=== PATIENT | female | born 1965 | race African-American/Black ===

== ENCOUNTER → 2019-02-26 21:39 | Outpatient (CLI) | payer MEDICAID | END | disposition home or self-care (01) | LOC: D.MAMMO 13:45 | PROVIDERS: ATTEND Family Medicine | DX: Z12.31 Encounter for screening mammogram for malignant neoplasm of breast (principal) ==

== ENCOUNTER → 2019-03-25 17:36 | Outpatient (CLI) | payer MEDICAID | END | disposition home or self-care (01) | LOC: D.US 17:36 | DX: R92.8 Other abnormal and inconclusive findings on diagnostic imaging of breast (principal) ==

== ENCOUNTER → 2019-09-27 17:21 | Outpatient (CLI) | payer OTHER | END | disposition home or self-care (01) | LOC: D.MAMMO 09:30 | PROVIDERS: ATTEND Family Medicine | DX: R92.8 Other abnormal and inconclusive findings on diagnostic imaging of breast (principal) ==

== ENCOUNTER → 2020-03-27 19:20 | Outpatient (CLI) | payer SELFPAY | END | disposition home or self-care (01) | LOC: D.MAMMO 09:00 | PROVIDERS: ATTEND Family Medicine | DX: R92.8 Other abnormal and inconclusive findings on diagnostic imaging of breast (principal) ==

== ENCOUNTER 2021-01-17 14:05 | Inpatient (IN) | payer OTHER ==
[~2021-01-17] VITALS: Ht 160 cm; Wt 93.9 kg
[2021-02-01] MEDS ORDERED: LOTENSIN20 MG PO (15:56)
[2021-02-01] MEDS ORDERED: BENZTROPINE MESY2 MG PO (15:57)
[2021-02-01] MEDS ORDERED: DEPAKOTE500 MG PO (15:58)
[2021-02-01] MEDS ORDERED: ZYPREXA10 MG PO (15:58)
[2021-02-01] MEDS ORDERED: PRAVACHOL20 MG PO (15:59)
[2021-02-05 10:13] LABS: ANION GAP 5.7 mmol/L (8-16); CALCIUM 9.6 mg/dL (8.5-10.1); CARBON DIOXIDE 36.2 mmol/L (21.0-32.0); POTASSIUM - SERUM 3.9 mmol/L (3.5-5.1)
[2021-02-05 10:53] LABS: HEMATOCRIT 36.6 % (36.0-48.0); HEMOGLOBIN 11.9 g/dL (12-16); LYMPHOCYTE ABS# 3.14 10x3/uL (1.18-3.74); MCH 28.5 pg (26.0-34.0); MCHC 32.5 g/dL (31.0-37.0); MCV 87.6 fL (80.0-100.0); MEAN PLATELET VOLUME 10.7 fL (7.4-10.4); NEUTROPHIL ABS# 2.11 10x3/uL (1.56-6.13); PLATELET COUNT 183 10x3/uL (130-400); RBC 4.18 10x6/uL (4.00-5.40); RDW 13.1 % (11.5-14.5); WBC 5.7 10x3/uL (4.8-10.8)
[2021-02-05 10:58] VITALS: BP 105/74; BMI 36.7
[2021-02-05 11:56] LABS: ALBUMIN 3.8 g/dL (3.4-5.0); BILIRUBIN - TOTAL 0.36 mg/dL (0.2-1.3); PROTEIN - SERUM 7.8 g/dL (6.4-8.2)
[2021-02-05 12:37] LABS: ANISOCYTOSIS OCC; LYMPHOCYTES 46 % (15-50); MONOCYTES 12 % (2-11); NEUTROPHILS 41 % (40-80); PLATELET ESTIMATE NORMAL
--- NOTE | 2021-02-05 16:10 | NUR ---
PT RESPONSIVE TO VERBAL COMMANDS. HOLDING AN HOUR POST NARCAN.
[2021-02-05 16:45] VITALS: BP 113/70; BMI 36.7
--- NOTE | 2021-02-05 17:05 | NUR ---
PATIENT RESTING QUIETLY, AROUSES EASILY TO VERBAL STIMULI. RESPIRATIONS EVEN AND UNLABORED. NO DISTRESS NOTED. IV SITE DRY AND INTACT WITH NO S/S OF INFILTRATION. FLUIDS RUNNING AT ORDERED RATE AT THIS TIME. NEGRON CATH IN PLACE DRAINING CLEAR, YELLOW URINE. INCISION ACROSS LOWER ABDOMEN DRESSED WITH DRESSING DRY ADN INTACT. CALL CASTILLO IN REACH, SIDE RAILS UP X 2, BED IN LOW POSITION.
[2021-02-05 18:35] VITALS: BP 118/73
[2021-02-05 20:00] VITALS: BP 118/73
[2021-02-06] VITALS (8 sets, daily range): BP systolic 89–161; BP diastolic 46–65
[2021-02-06 05:26] LABS: BASOPHILS 0 % (0-2); EOSINOPHILS 0 % (0-7); HEMATOCRIT 32.1 % (36.0-48.0); HEMOGLOBIN 10.4 g/dL (12-16); IMMATURE GRANULOCYTES 0.2 % (0-5); LYMPHOCYTE ABS# 1.44 10x3/uL (1.18-3.74); LYMPHOCYTES 13.8 % (15-50); MCHC 32.4 g/dL (31.0-37.0); MCV 86.5 fL (80.0-100.0); MEAN PLATELET VOLUME 10.9 fL (7.4-10.4); MONOCYTES 11.7 % (2-11); NEUTROPHIL ABS# 7.78 10x3/uL (1.56-6.13); NEUTROPHILS 74.3 % (40-80); PLATELET COUNT 149 10x3/uL (130-400); RBC 3.71 10x6/uL (4.00-5.40); RDW 13.1 % (11.5-14.5)
[2021-02-06 05:32] LABS: WBC 10.5 10x3/uL (4.8-10.8)
--- NOTE | 2021-02-06 05:33 | NUR ---
I have reviewed this patient and I concur with the Shift Assessment completed by the Licensed Practical Nurse today this shift.
[2021-02-06 06:04] LABS: ALKALINE PHOSPHATASE 48 U/L (30-120); ALT (SGPT) 13 U/L (10-68); BILIRUBIN - TOTAL 0.45 mg/dL (0.2-1.3); CALC OSMOLALITY 283 mosm/kg (275-300); CALCIUM 8.7 mg/dL (8.5-10.1); CARBON DIOXIDE 28.5 mmol/L (21.0-32.0); CHLORIDE - SERUM 105 mmol/L (98-107); GLUCOSE 104 mg/dL (74-106); MAGNESIUM - SERUM 1.8 mg/dL (1.8-2.4); PHOSPHOROUS 4.4 mg/dL (2.5-4.9); PROTEIN - SERUM 6.1 g/dL (6.4-8.2); SODIUM 141 mmol/L (136-145); TROPONIN-I < 0.017 ng/mL (0.000-0.060); UREA NITROGEN 20 mg/dL (7-18)
[2021-02-06 06:08] LABS: ALBUMIN 2.8 g/dL (3.4-5.0); CREATININE - SERUM 1.3 mg/dL (0.6-1.3); POTASSIUM - SERUM 4.5 mmol/L (3.5-5.1); eGFR NON AFRICAN AMERICAN 45 mL/min (90-120)
--- NOTE | 2021-02-06 07:00 | NUR ---
RECEIVED BEDSIDE REPORT ON PATIENT AND ASSUMED CARE. PATIENT SLEEPING, EASILY AROUSED BY VOICE, ALERT AND ORIENTED X 4, DENIES ANY PAIN. IV 20 GA TO LEFT AC INFUSING NS AT 125 ML/HR. DRESSING TO LOWER ABDOMEN C/D/I, NEGRON CATH IN PLACE WITH CLEAR [place]RI[place] UOP NOTED. BBS - CLEAR AND EQUAL. NO NEEDS AT THIS TIME. HEAD TO TOE ASSESSMENT COMPLETED.
--- NOTE | 2021-02-06 08:10 | NUR ---
PATIENT ASKING FOR SOMETHING TO DRINK, REMAINS NPO PER ORDER. ORAL CARE PERFORMED. NO OTHER NEEDS AT THIS TIME.
--- NOTE | 2021-02-06 09:24 | NUR ---
SPOKE TO RAINER, NURSE WITH PATIENTS [facility], STATES IF NEEDED FOR DISCHARGE PLANNING TO GIVE HER A CALL AT [phone].
--- NOTE | 2021-02-06 15:08 | NUR ---
PATIENT RESTING QUIETLY, NO NEEDS AT THIS TIME. MEDS PER DEC.
--- NOTE | 2021-02-06 21:58 | NUR ---
NURSE RECEIVED BEDSIDE REPORT. PT WAS RESTING IN BED AT THE TIME WITH COVERS OVER HER HEAD. NURSE REVIEWED PREVIOUS VITALS AND NOTICED PT HAS BEEN RUNNING A TEMP. Zhui Xin INFORMED THIS NURSE THAT PATIENT HAD A BP OF 89/49 WITH A 99.7 TEMP. NURSE TOOK BLOOD PRESSURE MANUALLY AND RECEIVED 100/62. PT WAS READJUSTED IN BED AND BLOOD PRESSURE WAS TAKEN AGAIN. RECEIVED BLOOD PRESSURE OF 161/58. THIS NURSE THEN PAGED DR. ALVAREZ ABOUT PT'S VITAL SIGNS. NURSE WAS GIVEN ORDERS OF A CHEST XRAY, BLOOD CULTURES TO BE DONE AND AN ORDER OF TYLENOL 650MG Q4H PRN FOR FEVER. PT IS ALERT AND ORIENTED. NO COMPLAINTS OF PAIN AT THIS TIME. PT SAYS SHE JUST FEELS SOME WEAKNESS. NEGRON IS IN PLACE AND DRAINING. BED IN LOWEST POSITION AND CALL LIGHT IN REACH.
[2021-02-07] VITALS: BP 85/48
[2021-02-07 04:00] VITALS: BP 101/62
--- NOTE | 2021-02-07 07:15 | NUR ---
RESTING IN BED WITH EYES CLOSED, EASILY AROUSED TO SPEECH. IV LOCATED TO LEFT FA CURRENTLY RUNNING NS @ 125ML. NEGRON PRESENT PUTTING OUT DARK [place]ANDRI[place] URINE. DENIES CURRENT NEEDS, WILL CONT TO MONITOR.
--- NOTE | 2021-02-07 07:47 | NUR ---
MANUAL BP 112/66
[2021-02-07 08:56] VITALS: BP 97/56
[2021-02-07 12:59] VITALS: BP 109/70
[2021-02-07 15:39] LABS: BASOPHILS 0.3 % (0-2); EOSINOPHILS 0.3 % (0-7); HEMATOCRIT 35.2 % (36.0-48.0); IMMATURE GRANULOCYTES 0.8 % (0-5); LYMPHOCYTE ABS# 3.12 10x3/uL (1.18-3.74); LYMPHOCYTES 19.7 % (15-50); MCH 28.5 pg (26.0-34.0); MCHC 31.3 g/dL (31.0-37.0); MEAN PLATELET VOLUME 11.2 fL (7.4-10.4); MONOCYTES 13.4 % (2-11); NEUTROPHIL ABS# 10.35 10x3/uL (1.56-6.13); NEUTROPHILS 65.5 % (40-80); PLATELET COUNT 164 10x3/uL (130-400); RBC 3.86 10x6/uL (4.00-5.40); RDW 14.3 % (11.5-14.5)
[2021-02-07 15:42] LABS: ANION GAP 13.2 mmol/L (8-16); BILIRUBIN - TOTAL 0.69 mg/dL (0.2-1.3); CALCIUM 9.3 mg/dL (8.5-10.1); CARBON DIOXIDE 26.2 mmol/L (21.0-32.0); CREATININE - SERUM 1.3 mg/dL (0.6-1.3); POTASSIUM - SERUM 4.4 mmol/L (3.5-5.1)
[2021-02-07 16:06] LABS: MCV 91.2 fL (80.0-100.0); WBC 15.8 10x3/uL (4.8-10.8)
[2021-02-07 18:03] VITALS: BP 105/67
[2021-02-07 20:00] VITALS: BP 97/46
--- NOTE | 2021-02-07 21:43 | NUR ---
PT RESTING IN BED. EASY TO AWAKEN. NO PAIN NOR DISTRESS NOTED AT THIS TIME. NO NAUSEA OR VOMITTING AT THIS TIME. BED IN LOWEST POSITION. CALL CASTILLO LIGHT IN REACH.
[2021-02-08] VITALS: BP 91/54
[2021-02-08 04:00] VITALS: BP 96/65
--- NOTE | 2021-02-08 04:56 | NUR ---
PT HAS NOT VOIDED THROUGHOUT THE NIGHT. RECEIVED AN ORDER FROM DAY GUARD PHYSICIAN DR. SPEARS TO IN AND OUT PATIENT. OUTPUT WAS AROUND 600 CC. PT TOLERATED WELL. UA WAS SENT TO LAB WELL.
[2021-02-08 05:56] LABS: BASOPHILS 0.1 % (0-2); EOSINOPHILS 0.4 % (0-7); HEMATOCRIT 33.2 % (36.0-48.0); HEMOGLOBIN 10.6 g/dL (12-16); IMMATURE GRANULOCYTES 0.3 % (0-5); LYMPHOCYTE ABS# 2.54 10x3/uL (1.18-3.74); LYMPHOCYTES 19.5 % (15-50); MCH 28.2 pg (26.0-34.0); MCHC 31.9 g/dL (31.0-37.0); MEAN PLATELET VOLUME 10.5 fL (7.4-10.4); MONOCYTES 9.9 % (2-11); NEUTROPHIL ABS# 9.09 10x3/uL (1.56-6.13); NEUTROPHILS 69.8 % (40-80); PLATELET COUNT 178 10x3/uL (130-400); RBC 3.76 10x6/uL (4.00-5.40); RDW 13.9 % (11.5-14.5)
[2021-02-08 06:16] LABS: MCV 88.3 fL (80.0-100.0)
[2021-02-08 06:18] LABS: ALBUMIN 2.5 g/dL (3.4-5.0); ANION GAP 14.8 mmol/L (8-16); BILIRUBIN - TOTAL 0.49 mg/dL (0.2-1.3); CALCIUM 8.8 mg/dL (8.5-10.1); CARBON DIOXIDE 24.3 mmol/L (21.0-32.0); CREATININE - SERUM 0.9 mg/dL (0.6-1.3); POTASSIUM - SERUM 4.1 mmol/L (3.5-5.1); PROTEIN - SERUM 6.4 g/dL (6.4-8.2)
--- NOTE | 2021-02-08 07:30 | NUR ---
ALERT AND ORIENTED. ASSESSMENT COMPLETE. DENIES NEEDS. BED LOW. CALL CASTILLO AND PERSONAL ITEMS IN REACH. WILL CONTINUE TO MONITOR.
--- NOTE | 2021-02-08 07:42 | HP ---
PATIENT: LEVI BAKER MEDICAL RECORD: [id number] ACCOUNT: [id number] LOCATION:D.MS Carvajal2223 : 63 ADMISSION DATE: 02/05/21 PCP: ISELA OWENS HISTORY AND PHYSICAL EXAMINATION REASON FOR CONSULTATION: Medical management in a patient with bipolar illness and postoperative colon resection. HISTORY OF PRESENT ILLNESS: The patient is a 55-year-old -[place] female who had a large 4 cm villous adenoma noted on endoscopy. It was too large to be removed endoscopically. Dr. Mora admitted her for laparoscopic sigmoid resection two days ago. She is now postoperative. She has had minimal bowel function. She had no nausea or vomiting. Some of her medications have been held. She has been a little bit more tearful recently, but denies any suicidal thoughts. PAST MEDICAL HISTORY: Bipolar disorder, anxiety, hyperlipidemia, hypertension, ventral hernia, and villous adenoma of the colon. PAST SURGICAL HISTORY: Sigmoid resection for villous adenoma, cholecystectomy, tubal ligation, and ventral hernia repair. HOME MEDICATIONS: Dexamethasone 4 mg p.o. daily started in October, Bumex 2 mg p.o. daily, benazepril 10 mg daily, Pravastatin 20 mg at bedtime, Haldol Decanoate 50 mg IM every 2 weeks. Divalproex ER 500 mg tablets 1 b.i.d., trihexyphenidyl 5 mg tablets by mouth daily, Haldol 10 mg daily, and olanzapine 20 mg p.o. b.i.d. ALLERGIES: None known. FAMILY HISTORY: Parents are . SOCIAL HISTORY: She lives with small group therapy. Denies alcohol or cigarette use or illicit drugs. REVIEW OF SYSTEMS: GENERAL: Denies weight change, fever, or fatigue. RESPIRATORY: No SOB. CARDIOVASCULAR: No chest pain, claudication, edema, or heart disease. GASTROINTESTINAL: No nausea, vomiting, change in stools, blood per rectum. She has currently had minimal flatus postoperatively. Denies significant abdominal pain. GENITOURINARY: No incontinence. No vaginal bleeding. ENDOCRINE: Denies polyuria, polydipsia, heat, or cold intolerance. NEUROLOGIC: No history of stroke, TIA, vascular headaches, or seizures. PSYCHIATRIC: Admits to chronically depressed mood but currently stable on her regimen. PHYSICAL EXAMINATION: VITAL SIGNS: Show a temperature of 99.1 earlier today was 100.6 Fahrenheit, pulse 98.8, respirations 16, blood pressure 109/78 with a sat of 96% on room air. GENERAL: The patient is alert and oriented. HEENT: Eyes are clear. Oropharynx unremarkable. NECK: Supple. HISTORY AND PHYSICAL [id number] LEVI BAKER CHEST: No wheeze or rales. HEART: Regular rate and rhythm. ABDOMEN: Mildly distended with hypoactive bowel sounds. Nontender throughout. PELVIC: Deferred. EXTREMITIES: No CC&E. NEUROLOGICAL: She is oriented to person, place, and time. Cranial nerves are grossly intact. No motor or sensory deficit appreciated. Gait was not tested. PSYCHIATRIC: The patient is in mild depression, but is not currently anxious or having any suicidal thoughts or hallucinosis. LABORATORY DATA: White count of 15.8 thousand and yesterday of 10.5 thousand. H and H 11 and 35.2 respectively. Chemistry: BUN and creatinine are 16 and 1.3. CEA is 4.3. UA not ordered. Chest x-ray shows no acute cardiopulmonary disease. ASSESSMENT: 1. Two days status post laparoscopic sigmoid resection for villous adenoma. 2. Leukocytosis, etiology unknown. 3. Postoperative anemia, asymptomatic. 4. Hypertension, hyperlipidemia, bipolar disorder. PLAN: Follow CBC. At this time, it is not clinically septic. We will resume her antipsychotics as soon as surgery allows. Dr. Owens will follow in the a.m. TRANSINT:[id number] Voice Confirmation ID: [id number] DOCUMENT ID: [id number] SAMMY KELLER MD at 0742 CC: [id number] DICTATION DATE: 02/07/211800 OPERATING COST CLERK: 02/07/212136 ADM IN [facility] [address] [place] [address]
[2021-02-08 07:44] LABS: BILIRUBIN NEGATIVE (NEGATIVE); KETONE SMALL mg/dL (NEGATIVE); NITRITE NEGATIVE (NEGATIVE); SQUAMOUS EPITHELIAL 0-5 HPF (0-4); UROBILINOGEN NORMAL mg/dL (< 2); WHITE CELLS - URINE 0-5 HPF (0-4)
[2021-02-08 07:45] LABS: AMORPHOUS SEDIMENT <1+ LPF (NONE SEEN); BACTERIA FEW HPF (NONE SEEN)
--- NOTE | 2021-02-08 07:46 | NUR ---
ATTEMPTED TO OFFLOAD PATIENT TO RIGHT SIDE BUT STATES WANTS TO BE ON BACK. PATIENT'S BUTTOCKS WITHOUT REDNESS. SKIN INTACT.
--- NOTE | 2021-02-08 08:25 | NUR ---
SPOKE WITH DR OWENS WHO STATES TO PLACE NEGRON IF PATIENT DOES NOT VOID BY 1100.
[2021-02-08 08:42] VITALS: BP 100/66
--- NOTE | 2021-02-08 09:57 | NUR ---
16 GEORGIAN NG TUBE PLACED IN RIGHT NARE. KUB PERFORMED.
--- NOTE | 2021-02-08 11:00 | NUR ---
16 F NEGRON PLACED PER PIG CASTER KARLA D/T PATIENT UNABLE TO VOID. 500CC OUT.
[2021-02-08 13:27] VITALS: Ht 160 cm; Wt 93.9 kg
[2021-02-08 14:04] VITALS: BP 130/77
--- NOTE | 2021-02-08 14:26 | NUR ---
PATIENT STATES FEELS LIKE SHE NEEDS TO HAVE BM. ASSISTED TO BATHROOM. BM NOTED TO BED AND LINENS CHANGED. PATIENT ALSO HAD ANOTHER MEDIUM SOFT BM IN TOILET.
[2021-02-08 16:49] VITALS: BP 135/70
--- NOTE | 2021-02-08 20:00 | NUR ---
ALERTRESTING IN BED, NG TUBE TO R NARES WITH 400CC DARK FLUID NOTED IN CANISTER, INCONTIENT OF LARGE AMOUNT SOFT STOOL, PADS CHANGED PERICARE AND NEGRON CARE DONE, SEE SHIFT ASSESSMENT, CALL LIGHT IN REACH INSTRUCTED TO CALL IF HAS ANOTHER BM
[2021-02-08 21:36] VITALS: BP 105/58
--- NOTE | 2021-02-09 01:00 | NUR ---
INVONTIENT OF MODERATE AMOUNT SOFT STOOL, PADS CHANGED PERICARE AND NEGRON CARE DONE, DENIES NEEDS AT THIS TIME
[2021-02-09 04:00] VITALS: BP 108/61
[2021-02-09 06:32] LABS: BASOPHILS 0.3 % (0-2); EOSINOPHILS 1.7 % (0-7); HEMATOCRIT 30.4 % (36.0-48.0); HEMOGLOBIN 9.6 g/dL (12-16); IMMATURE GRANULOCYTES 0.5 % (0-5); LYMPHOCYTE ABS# 2.47 10x3/uL (1.18-3.74); LYMPHOCYTES 23.7 % (15-50); MCH 27.8 pg (26.0-34.0); MCHC 31.6 g/dL (31.0-37.0); MCV 88.1 fL (80.0-100.0); MEAN PLATELET VOLUME 10.3 fL (7.4-10.4); NEUTROPHIL ABS# 6.67 10x3/uL (1.56-6.13); NEUTROPHILS 63.8 % (40-80); RBC 3.45 10x6/uL (4.00-5.40); RDW 14.2 % (11.5-14.5); WBC 10.4 10x3/uL (4.8-10.8)
[2021-02-09 06:47] LABS: PLATELET COUNT 237 10x3/uL (130-400)
[2021-02-09 07:03] LABS: ALBUMIN 2.4 g/dL (3.4-5.0); ALKALINE PHOSPHATASE 53 U/L (30-120); ALT (SGPT) 8 U/L (10-68); BILIRUBIN - TOTAL 0.34 mg/dL (0.2-1.3); CALC OSMOLALITY 288 mosm/kg (275-300); CALCIUM 8.5 mg/dL (8.5-10.1); CARBON DIOXIDE 23.6 mmol/L (21.0-32.0); CHLORIDE - SERUM 112 mmol/L (98-107); CREATININE - SERUM 0.7 mg/dL (0.6-1.3); GLUCOSE 92 mg/dL (74-106); POTASSIUM - SERUM 3.9 mmol/L (3.5-5.1); SODIUM 145 mmol/L (136-145); UREA NITROGEN 13 mg/dL (7-18); eGFR NON AFRICAN AMERICAN > 90 mL/min (90-120)
[2021-02-09 08:02] VITALS: BP 110/74
--- NOTE | 2021-02-09 09:42 | NUR ---
ALERT AND ORIENTED. ASSESSMENT COMPLETE. DENIES NEEDS. BED LOW. CALL CASTILLO AND PERSONAL ITEMS IN REACH. WILL CONTINUE TO MONITOR.
[2021-02-09 12:49] VITALS: BP 128/69
--- NOTE | 2021-02-09 14:04 | NUR ---
NG TUBE ACCIDENTALLY PULLED OUT BY PATIENT DURING PT. SPOKE WITH FERN ACOSTA WHO STATES TO LEAVE TUBE OUT AND MONITOR FOR NAUSEA. STATES KEEP PATIENT NPO.
--- NOTE | 2021-02-09 14:59 | NUR ---
PATIENT HAD NG TUBE. PATIENT WAS MIN ASST TO GET UP TO BEDSIDE AND TO STAND. PATIENT WAS ABLE TO TAKE A FEW STEPS FORWARD AND BACK AND ALONG BEDSIDE WITH MIN ASST. PATIENT HAD A BM AND NEEDED TO BE CLEANED UP. ASSISTED NSG IN CLEANING PATIENT. PATIENT HAD TO DO SEVERAL SIT TO STANDS DUE TO BECOMING FATIGUED.
[2021-02-09 16:55] VITALS: BP 116/69
--- NOTE | 2021-02-09 17:07 | NUR ---
REINFORCED TO PATIENT USE OF IS. VERBALIZED UNDERSTANDING.
[2021-02-09 19:36] VITALS: BP 102/60
[2021-02-10 01:05] VITALS: BP 112/58
--- NOTE | 2021-02-10 03:00 | NUR ---
I have reviewed this patient and I concur with the Shift Assessment completed by the Licensed Practical Nurse today this shift.
--- NOTE | 2021-02-10 03:00 | NUR ---
I have reviewed this patient and I concur with the Shift Assessment completed by the Licensed Practical Nurse today this shift.
[2021-02-10 05:07] LABS: BASOPHILS 0.3 % (0-2); EOSINOPHILS 3.2 % (0-7); HEMATOCRIT 29.7 % (36.0-48.0); HEMOGLOBIN 9.3 g/dL (12-16); IMMATURE GRANULOCYTES 0.6 % (0-5); LYMPHOCYTE ABS# 2.33 10x3/uL (1.18-3.74); LYMPHOCYTES 29.9 % (15-50); MCH 27.8 pg (26.0-34.0); MCHC 31.3 g/dL (31.0-37.0); MCV 88.7 fL (80.0-100.0); MEAN PLATELET VOLUME 9.4 fL (7.4-10.4); MONOCYTES 13.6 % (2-11); NEUTROPHIL ABS# 4.09 10x3/uL (1.56-6.13); NEUTROPHILS 52.4 % (40-80); PLATELET COUNT 224 10x3/uL (130-400); RBC 3.35 10x6/uL (4.00-5.40); RDW 14.2 % (11.5-14.5); WBC 7.8 10x3/uL (4.8-10.8)
[2021-02-10 05:44] LABS: ALBUMIN 2.2 g/dL (3.4-5.0); ALKALINE PHOSPHATASE 46 U/L (30-120); ALT (SGPT) 8 U/L (10-68); BILIRUBIN - TOTAL 0.31 mg/dL (0.2-1.3); CALC OSMOLALITY 288 mosm/kg (275-300); CALCIUM 8.3 mg/dL (8.5-10.1); CARBON DIOXIDE 23.4 mmol/L (21.0-32.0); CHLORIDE - SERUM 113 mmol/L (98-107); CREATININE - SERUM 0.6 mg/dL (0.6-1.3); GLUCOSE 89 mg/dL (74-106); SODIUM 146 mmol/L (136-145); UREA NITROGEN 11 mg/dL (7-18); eGFR NON AFRICAN AMERICAN > 90 mL/min (90-120)
[2021-02-10 05:46] VITALS: BP 129/89
--- NOTE | 2021-02-10 07:45 | NUR ---
PT EASILY AWAKENED. NO NEEDS AT THIS TIME. NEGRON EMPTIED. WILL TALLY OUTPUT FOR I/OS. CL IN REACH. NO NEEDS WCTM.
[2021-02-10 09:15] VITALS: BP 103/64
[2021-02-10 13:50] VITALS: BP 103/62
--- NOTE | 2021-02-10 14:23 | NUR ---
PT ATE AND TOLERATED A CLD. WILL ENSURE SHE TOLERATES LUNCH. CL IN REACH. NO FURTHER NEEDS AT THIS TIME. WCTM
--- NOTE | 2021-02-10 17:58 | NUR ---
PT NEGRON CARE COMPLETED. HAD A LARGE BM THAT WAS DIARHEA. CL IN REACH. NO FURTHER NEEDS AT THIS TIME. WCTM
[2021-02-10 18:34] VITALS: BP 103/64
--- NOTE | 2021-02-10 19:10 | NUR ---
REHAB PRESCREEN THANK YOU FOR THIS EVAL, THIS PATIENT HAS PRIVATE INSURANCE AND WILL REQUIRE PRIOR AUTH. HOWEVER THIS PT IS INDEPENDANT IN THE ROOM AND THERAPY HAS SIGNED OFF, SO SHE WILL BE TOO HIGH FUNCTION FOR IRF. ONCE AGAIN THANK YOU FOR THIS EVAL. MAYNOR GARCIA LPN CLINICAL LIASION
[2021-02-10 20:00] VITALS: BP 111/64
[2021-02-11] VITALS: BP 91/62
[2021-02-11 04:00] VITALS: BP 92/60
[2021-02-11 06:52] LABS: BASOPHILS 0.3 % (0-2); EOSINOPHILS 2.1 % (0-7); HEMATOCRIT 29.3 % (36.0-48.0); HEMOGLOBIN 9.2 g/dL (12-16); IMMATURE GRANULOCYTES 0.8 % (0-5); LYMPHOCYTE ABS# 2.56 10x3/uL (1.18-3.74); LYMPHOCYTES 32.3 % (15-50); MCH 27.6 pg (26.0-34.0); MCHC 31.4 g/dL (31.0-37.0); MEAN PLATELET VOLUME 9.3 fL (7.4-10.4); MONOCYTES 12.9 % (2-11); NEUTROPHIL ABS# 4.09 10x3/uL (1.56-6.13); NEUTROPHILS 51.6 % (40-80); RBC 3.33 10x6/uL (4.00-5.40); RDW 13.8 % (11.5-14.5); WBC 7.9 10x3/uL (4.8-10.8)
[2021-02-11 06:56] LABS: PLATELET COUNT 274 10x3/uL (130-400)
[2021-02-11 07:23] LABS: ALKALINE PHOSPHATASE 48 U/L (30-120); ALT (SGPT) 10 U/L (10-68); BILIRUBIN - TOTAL 0.34 mg/dL (0.2-1.3); CALC OSMOLALITY 282 mosm/kg (275-300); CALCIUM 8.2 mg/dL (8.5-10.1); CARBON DIOXIDE 23.1 mmol/L (21.0-32.0); CHLORIDE - SERUM 112 mmol/L (98-107); CREATININE - SERUM 0.6 mg/dL (0.6-1.3); GLUCOSE 92 mg/dL (74-106); POTASSIUM - SERUM 3.7 mmol/L (3.5-5.1); PROTEIN - SERUM 5.2 g/dL (6.4-8.2); SODIUM 143 mmol/L (136-145); eGFR NON AFRICAN AMERICAN > 90 mL/min (90-120)
[2021-02-11 07:24] LABS: UREA NITROGEN 7 mg/dL (7-18)
--- NOTE | 2021-02-11 07:30 | NUR ---
PT EASILY AWAKENED. HAS HAD A PRETTY LARGE DIARRHEA BM. SCD'S ON. STATES NO PAIN. NO NAUSEA. NO NEEDS. CL IN REACH. WCTM
[2021-02-11 10:07] VITALS: BP 96/45
[2021-02-11] MEDS ORDERED: HYDROCODON-ACE1 EAC7 PO (12:05)
[2021-02-11] MEDS ORDERED: LEVOFLOXACIN500 MG PO (12:05)
[2021-02-11 14:15] VITALS: BP 99/56
--- NOTE | 2021-02-11 15:13 | NUR ---
DR HANLEY CAME AROUND. STATES HE WILL PUT IN DISCHARGE ORDERS IN WITH STIPULATIONS PT URINATES, PT CONSULT, AND CAN AMBULATE. PT NEGRON REMOVED WITH 8 ML REMOVED FROM BALLOON. WILL COUNT FLUID WITH I/O. PT HAS NO NEEDS AT THIS TIME. WCTM
[2021-02-11 18:03] VITALS: BP 125/74
--- NOTE | 2021-02-11 19:10 | MORECARE ---
CASE MANAGEMENT DISCHARGE SUMMARY PATIENT: LEVI BAKER UNIT: [id number] ADM DATE: 02/05/21 AGE: 55 : 63 SEX: F ROOM/BED: D.2223 AUTHOR: RADHA,DOC PHYSICIAN: REFERRING PHYSICIAN: ДМИТРИЙ BRANDT MD DATE OF SERVICE: 02/11/21 Case Management Discharge Planning Summary COMMENTS ENTERED DATE: 02/11/21 19:07 CT COMMENT TYPE: Discharge Planning REVIEWER: Carl Barnes CM met with patient to complete DC plan and to evaluate needs. Patient lives at [facility], a [facility]. Patient stated that the facility is safe and has electricity and running water. Patient stated that she has no problems paying for medications and she fills her medications at [facility]. Patient stated that her primary care physician is Dr. Byrd. At discharge, the patient plans to return to [facility]. CM discussed availability of home health, rehab services, and medical equipment. Patient declined HHS, SNF, IPR, and DME. CM spoke with patient's person investigator, Pili Sullivan of [facility] [employer], . Pili stated that she does not feel that the patient is safe to return to [facility] today as there are no medical personnel at the Residences and no one from the facility to can come to transport the patient. Pili stated that she will be able to safely bring the patient back to the residence tomorrow at 0900. Pili stated that she would like a detailed report from the staff nurse tomorrow before discharge. Patient voiced no other needs at this time and is satisfied with DC plan. Transportation provider at discharge will be with [facility]. CM will continue to follow and will assist as needed with dc plans/needs. DCP REVIEW SUMMARY ANTICIPATED D/C DATE: EXPECTED LOS : CASE STATUS: DCP Initiated INITIAL REVIEW: 02/05/2021 INITIAL REVIEWER: Carl Barnes FINAL DISCHARGE DISPOSITION: : FINAL REVIEWER: FINAL REVIEW DATE: DCP Focus Questions & Answers DCP Evaluation QUESTION: ANSWER Family / Caregiver's ability to cope with chronic illness: : b. Minimal (occasionally not dependable to meet pt's. needs, can meet pt's. basic ADL's) Patient gives permission to discuss discharge plans with: (name, relationship and number) : person investigator, Pili Luques of [facility], Patient's ability to cope with chronic illness : d. No chronic illness Patient's current cognitive status: : *Oriented to person, place, situation, time and present Patient's current cognitive status: : Intermittently confused / memory changes Patient and/or caregiver agree upon recommended discharge plan? : Yes Physical Status: : Independent with ADL's Family / Caregiver's ability to cope with chronic illness: : b. Minimal (occasionally not dependable to meet pt's. needs, can meet pt's. basic ADL's) Functional screen assessment: : Basic needs can adequately be met by self Does the patient have the ability to pay for or attain post discharge needs / services? : Yes Living Arrangements: : Long Term Is there a likelihood that the patient will require additional services to return to the preadmission environment? : No Equipment needed for post hospitalization: : None Living arrangements comments: : Residential Care Baseline cognitive status: : *Oriented to person, place, situation, time and present Patient with capacity for self-care or can be cared for in same environment as prior to hospitalization? : Yes Facility / Agency name and contact information from Question 3 (if applicable): : [facility] Physical environment modification needed / anticipated for discharge: : No Medication Management: : Patient states can afford medications Medication Management: : Patient states can read and understand medication labels Pharmacy name(s): : [facility] Does Patient have transportation to get home and to follow-up medical appointments when discharged from the hospital? : Yes Would patient like to participate in any Care Coordination programs (if applicable): : Not applicable Does the patient have electricity at home? : Yes Does the patient have running water in their house? : Yes Mental health screen: : No mental health history DCP Re-evaluation QUESTION: ANSWER Would patient like to participate in any Care Coordination programs (if applicable): : Not applicable PATIENT: LEVI BAKER ENCOUNTER: [id number] MEDICAL RECORD#: [id number] ADMISSION DATE: 02/05/2021 DISCHARGE DATE: ATTENDING MD: ДМИТРИЙ HAIDER : AGE: 55 MARITAL STATUS: S DC PLAN ID: [id number] FACILITY: [facility] PRINTED ON: 02/11/21 19:10 CT All edits/amendments must be made on the electronic document DICTATION DATE: 02/11/211909 BODY SERVICE TEAM MEMBER: DUC 02/11/211909 RPT#: [id number] DC DATE: STATUS: ADM IN [facility] [address] [place] [address] END OF REPORT
[2021-02-11 20:00] VITALS: BP 103/63
[2021-02-12] VITALS: BP 103/64
[2021-02-12 04:00] VITALS: BP 115/74
[2021-02-12 05:55] LABS: BASOPHILS 0.2 % (0-2); EOSINOPHILS 2.6 % (0-7); HEMATOCRIT 28.7 % (36.0-48.0); HEMOGLOBIN 9.1 g/dL (12-16); IMMATURE GRANULOCYTES 0.7 % (0-5); LYMPHOCYTE ABS# 2.84 10x3/uL (1.18-3.74); LYMPHOCYTES 35.2 % (15-50); MCH 27.7 pg (26.0-34.0); MCHC 31.7 g/dL (31.0-37.0); MCV 87.2 fL (80.0-100.0); MEAN PLATELET VOLUME 9.1 fL (7.4-10.4); MONOCYTES 10.3 % (2-11); PLATELET COUNT 313 10x3/uL (130-400); RBC 3.29 10x6/uL (4.00-5.40); RDW 13.7 % (11.5-14.5); WBC 8.1 10x3/uL (4.8-10.8)
[2021-02-12 06:20] LABS: ALKALINE PHOSPHATASE 47 U/L (30-120); ALT (SGPT) 7 U/L (10-68); BILIRUBIN - TOTAL 0.28 mg/dL (0.2-1.3); CALC OSMOLALITY 283 mosm/kg (275-300); CALCIUM 8.1 mg/dL (8.5-10.1); CARBON DIOXIDE 25.5 mmol/L (21.0-32.0); CHLORIDE - SERUM 111 mmol/L (98-107); CREATININE - SERUM 0.7 mg/dL (0.6-1.3); GLUCOSE 104 mg/dL (74-106); POTASSIUM - SERUM 3.5 mmol/L (3.5-5.1); PROTEIN - SERUM 5.2 g/dL (6.4-8.2); SODIUM 144 mmol/L (136-145); UREA NITROGEN 4 mg/dL (7-18); eGFR NON AFRICAN AMERICAN > 90 mL/min (90-120)
[2021-02-12 08:43] VITALS: BP 140/87
--- NOTE | 2021-02-12 09:04 | NUR ---
ALERT AND ORIENTED. ASSESSMENT COMPLETE. DENIES NEEDS. BED LOW. CALL CASTILLO AND PERSONAL ITEMS IN REACH. WILL CONTINUE TO MONITOR.
--- NOTE | 2021-02-12 09:18 | NUR ---
DC EDUCATION PROVIDED BOTH WRITTEN AND VERBAL. VERBALIZED UNDERSTANDING. DENIES FURTHER QUESTIONS. RX PROVIDED FOR ABX AND PRN PAIN MEDICATION. EXTRA DRSGS FOR ABD X 4 PROVIDED WITH EDUCATION TO KEEP INCISION SITE C/D/I. VERBALIZED UNDERSTANDING. IV REMOVED FROM RFA WITH TIP INTACT.
--- NOTE | 2021-02-12 09:28 | NUR ---
REPORT CALLED TO RAINER AT [facility]. ABX CALLED IN TO [facility] PER REQUEST. WOUND CARE EDUCATION AND FOLLOW UP APPOINTMENTS PROVIDED TO RAINER. DENIES FURTHER QUESTIONS OR NEEDS. STATES WILL COME SNAKER DRIVING HORSES PATIENT.
--- NOTE | 2021-02-12 10:08 | NUR ---
PATIENT DC BACK TO [facility] WITH ALL BELONGINGS.
--- NOTE | 2021-02-13 14:24 | HP ---
PATIENT: LEVI BAKER MEDICAL RECORD: [id number] ACCOUNT: [id number] LOCATION:D.MS Carvajal2223 : 63 ADMISSION DATE: 02/05/21 PCP: ISELA OWENS HISTORY AND PHYSICAL EXAMINATION HISTORY OF PRESENT ILLNESS: The patient has a 4-cm tattooed multilobular villous adenoma in the mid sigmoid colon that was too large to be removed endoscopically. The patient is to undergo a laparoscopic hand-assisted sigmoid colectomy. In one area in the patient's history and physical it says a 4-mm sessile polyp instead that should be a 4-cm sessile polyp. PAST MEDICAL AND SURGICAL HISTORY: Hypertension, bipolar disorder, hyperlipidemia, history of tubal ligation, anxiety disorder. SOCIAL HISTORY: Never smoked. HOME MEDICATIONS: Reviewed. ALLERGIES: No known drug allergies. PHYSICAL EXAMINATION: GENERAL: The patient does not appear acutely ill. She does not appear chronically ill. VITAL SIGNS: Reviewed. EARS: External ears appear normal. EYES: Extraocular movements are intact. NECK: Trachea is midline. CHEST: No intercostal retractions. PULMONARY: Nonlabored. No stridor. IMPRESSION: Mid sigmoid colon polyp. PLAN: Laparoscopic hand-assisted sigmoid colectomy, possible open procedure. TRANSINT:[id number] Voice Confirmation ID: [id number] DOCUMENT ID: [id number] ДМИТРИЙ BRANDT MD at 1424 CC: [id number] DICTATION DATE: 02/05/21 1254 BEEF BREAKER: 02/05/21 1334 DIS IN 02/12/21 [place] [id number] [place] [id number]
--- NOTE | 2021-02-13 14:24 | OP ---
PATIENT NAME: LEVI BAKER MEDICAL RECORD: [id number] :63 LOCATION:D.MS Carvajal2223 ADMISSION DATE:02/05/21 SURGEON: ДМИТРИЙ BRANDT MD DATE OF OPERATION: 02/05/2021 PREOPERATIVE DIAGNOSIS: Endoscopically unresectable large polyp of the sigmoid colon, tattooed. POSTOPERATIVE DIAGNOSIS: Endoscopically unresectable large polyp of the sigmoid colon, tattooed, with apparent lack of bowel prep. PROCEDURE: Hand-assisted laparoscopic surgery -- sigmoid colectomy. SURGEON: Дмитрий Brandt MD. CLAY PIGEON LOADER: None. BLOOD LOSS: See the anesthesia sheet. COMPLICATIONS: Spillage of fecal material. The risks, possible complications, and alternatives of the procedure were explained to the patient. She elects to proceed. The discussion specifically included, but was not limited to, bleeding requiring emergency reoperation, infection, intestinal injury, colostomy formation. OPERATIVE COURSE: The patient was conveyed to the operating room electively on 02/05/2021. General anesthesia was induced by the anesthesia staff. The patient was placed in adjustable stirrups in lithotomy position. A transverse incision was accomplished in the suprapubic area. Sharp dissection was carried out through skin and subcutaneous tissues as well as Jamila fascia. The anterior fascia was incised transversely. Subfascial flaps were created cephalad and caudad direction. I the rectus muscles. The peritoneal cavity was entered sharply. An Bret retractor was placed. On the top of this, a Gelport was placed. Through the Gelport, I started my hand and performed blunt dissection. The Gelport was removed. I was able to find both tattoos. I exteriorized that whole portion of the sigmoid colon. I incised along the mesorectum in order to gain some additional mobility of the rectum. I chose the distal extent of my resection to be the junction of the sigmoid colon and the rectum. A window was created in the mesorectum. I stapled across the large bowel at the site with a SCOTT-75 stapler. I then chose the proximal extent of my resection to be the proximal sigmoid colon. A window was created in the mesocolon. I stapled across the colon at this site with a SCOTT-75 stapler. The interposed mesentery was taken down with the super jaw EnSeal device. I opened up the specimen on the back table. The polyp was very large. I think it is probably going to be about 7 cm in greatest dimension. It was sent to pathology to check for margins. The margins were free. It is very unfortunate that there was actually fecal material including solid fecal material within the colon. This was essentially an unprepped colon. However, we were told by a caregiver of the patient that she did receive the prep. The antimesenteric borders of the rectum and the remaining sigmoid colon were brought into apposition side by side kept in place with a row of 3-0 Vicryl OPERATIVE REPORT [id number] LEVI BAKER sutures. A small proctotomy and a small colotomy were accomplished. There was some spillage of bile at this point. We sucked it up as quickly as we could and wiped it away. The anvil of SCOTT-75 stapler were advanced and fired. The resulting colorectal defect was closed with a single firing of a TA 60 stapler. I then oversewed the staple line with a row of 3-0 Vicryl sutures. Due to the spillage that had occurred, which I would say is moderate, we irrigated the pelvis with hydrogen peroxide and then warm saline. The anastomosis was widely patent 2-3 fingers. The peritoneum was closed with running #1 Vicryl. The rectus muscles were approximated in the midline with multiple interrupted horizontal mattress #1 Vicryls. The anterior fascia was closed with running looped #1 PDS from the right and from the left. Jamila's fascia was approximated with interrupted 3-0 Vicryl. The subdermis was approximated with interrupted 3-0 Vicryl. Skin was approximated with a running intracuticular 3-0 Vicryl. Benzoin and Steri-Strips were applied. The patient was then extubated and conveyed to post-anesthesia care unit where she was in stable condition. TRANSINT:[id number] Voice Confirmation ID: [id number] DOCUMENT ID: [id number] ДМИТРИЙ BRANDT MD at 1424 CC: JANICE DSOUZA DO [id number] DICTATION DATE: 02/05/21 1745 GRINDER CHIPPER: 02/06/21 0250 DIS IN 02/12/21 [facility] [address] [place] [address]
--- NOTE | 2021-02-13 15:54 | MORECARE ---
CASE MANAGEMENT DISCHARGE SUMMARY PATIENT: LEVI BAKER UNIT: [id number] ADM DATE: 02/05/21 AGE: 55 : 63 SEX: F ROOM/BED: D.2223 AUTHOR: RADHA,DOC PHYSICIAN: REFERRING PHYSICIAN: ДМИТРИЙ BRANDT MD DATE OF SERVICE: 02/13/21 Case Management Discharge Planning Summary COMMENTS ENTERED DATE: 02/11/21 19:07 CT COMMENT TYPE: Discharge Planning REVIEWER: Carl Barnes CM met with patient to complete DC plan and to evaluate needs. Patient lives at [facility], a [facility]. Patient stated that the facility is safe and has electricity and running water. Patient stated that she has no problems paying for medications and she fills her medications at [facility]. Patient stated that her primary care physician is Dr. Byrd. At discharge, the patient plans to return to [facility]. CM discussed availability of home health, rehab services, and medical equipment. Patient declined HHS, SNF, IPR, and DME. CM spoke with patient's salesperson new cars, Pili Sullivan of [facility] [employer], . Pili stated that she does not feel that the patient is safe to return to [facility] today as there are no medical personnel at the Residences and no one from the facility to can come to transport the patient. Pili stated that she will be able to safely bring the patient back to the residence tomorrow at 0900. Pili stated that she would like a detailed report from the staff nurse tomorrow before discharge. Patient voiced no other needs at this time and is satisfied with DC plan. Transportation provider at discharge will be with [facility] [employer]. CM will continue to follow and will assist as needed with dc plans/needs. DCP REVIEW SUMMARY ANTICIPATED D/C DATE: EXPECTED LOS : CASE STATUS: DCP Initiated INITIAL REVIEW: 02/05/2021 INITIAL REVIEWER: Carl Barnes FINAL DISCHARGE DISPOSITION: : FINAL REVIEWER: FINAL REVIEW DATE: DCP Focus Questions & Answers DCP Evaluation QUESTION: ANSWER Patient and/or caregiver agree upon recommended discharge plan? : Yes Family / Caregiver's ability to cope with chronic illness: : b. Minimal (occasionally not dependable to meet pt's. needs, can meet pt's. basic ADL's) Patient's current cognitive status: : Intermittently confused / memory changes Patient's current cognitive status: : *Oriented to person, place, situation, time and present Patient's ability to cope with chronic illness : d. No chronic illness Patient gives permission to discuss discharge plans with: (name, relationship and number) : salesperson new cars, Pili Sullivan of [employer], Does the patient have the ability to pay for or attain post discharge needs / services? : Yes Functional screen assessment: : Basic needs can adequately be met by self Family / Caregiver's ability to cope with chronic illness: : b. Minimal (occasionally not dependable to meet pt's. needs, can meet pt's. basic ADL's) Physical Status: : Independent with ADL's Equipment needed for post hospitalization: : None Is there a likelihood that the patient will require additional services to return to the preadmission environment? : No Living Arrangements: : Retirement Patient with capacity for self-care or can be cared for in same environment as prior to hospitalization? : Yes Baseline cognitive status: : *Oriented to person, place, situation, time and present Living arrangements comments: : Residential Care Physical environment modification needed / anticipated for discharge: : No Facility / Agency name and contact information from Question 3 (if applicable): : [facility] Medication Management: : Patient states can read and understand medication labels Medication Management: : Patient states can afford medications Pharmacy name(s): : [facility] Does Patient have transportation to get home and to follow-up medical appointments when discharged from the hospital? : Yes Would patient like to participate in any Care Coordination programs (if applicable): : Not applicable Does the patient have electricity at home? : Yes Does the patient have running water in their house? : Yes Mental health screen: : No mental health history DCP Re-evaluation QUESTION: ANSWER Would patient like to participate in any Care Coordination programs (if applicable): : Not applicable PATIENT: LEVI BAKER ENCOUNTER: [id number] MEDICAL RECORD#: [id number] ADMISSION DATE: 02/05/2021 DISCHARGE DATE: 02/12/2021 ATTENDING MD: ДМИТРИЙ HAIDER : AGE: 55 MARITAL STATUS: S DC PLAN ID: [id number] FACILITY: [facility] PRINTED ON: 02/13/21 15:53 CT All edits/amendments must be made on the electronic document DICTATION DATE: 02/13/21 155 ASSISTANT PRINTER FLOOR COVERING: DUC 02/13/21 155 RPT#: [id number] DC DATE:02/12/21 STATUS: DIS IN [facility] [address] [place] [address] END OF REPORT
== END 2021-02-12 10:09 | DRG 330 ==
LOC: D.SDCHOLD 02-05 10:00 → D.MS 02-05 16:41
PROVIDERS: Family Medicine; ADMIT Surgery; ATTEND Surgery
PROC: 0DTN0ZZ Resection of Sigmoid Colon, Open Approach (ICD-10-PCS; principal; 2021-02-05 11:15)
DX: D12.5 Benign neoplasm of sigmoid colon (principal); N17.9 Acute kidney failure, unspecified; K63.5 Polyp of colon; I10 Essential (primary) hypertension; E78.5 Hyperlipidemia, unspecified; R33.9 Retention of urine, unspecified; R50.9 Fever, unspecified; F31.9 Bipolar disorder, unspecified